=== PATIENT | male | born 1990 | race Caucasian/White ===

== ENCOUNTER 2016-09-04 16:20 | Emergency (ER) | payer SELFPAY ==
[2016-09-04 16:45] VITALS: BP 123/76
--- NOTE | 2016-09-04 16:55 | UC ---
Skin Complaint HPI - HPI Summary HPI Summary: RASH X 2 WEEKS ALL OVER, VERY ITCHY , NO NEW SOAP OR DETERGENT , NO NEW FOOD OR DRINKS - History of Current Complaint Chief Complaint: UCSkin Time Seen by Provider: 09/04/16 16:47 Stated Complaint: SKIN COMPLAINT Hx Obtained From: Patient Onset/Duration: Gradual Onset, Lasting Weeks - 2, Still Present Timing: Constant Onset Severity: Moderate Current Severity: Moderate Location: Diffuse Character: Swelling, Pruritus, Hives, Redness Aggravating: Nothing Alleviating: Unknown Associated Signs & Symptoms: Positive: Rash - Allergy/Home Medications Allergies/Adverse Reactions: Allergies Allergy/AdvReac Type Severity Reaction Status Date / Time No Known Allergies Allergy Verified 09/04/16 16:45 Home Medications: Home Medications Hydrocortisone (Topical) [Cortaid Maximum Strength] 1 % EX DAILY PRN 09/04/16 [ History Confirmed 09/04/16] Review of Systems Constitutional: Negative Skin: Rash Eyes: Negative ENT: Negative Respiratory: Negative All Other Systems Reviewed And Are Negative: Yes PMH/Surg Hx/FS Hx/Imm Hx Previously Healthy: Yes - Surgical History Surgical History: Yes Surgery Procedure, Year, and Place: INGUINAL HERNIA REPAIR - Family History Known Family History: Negative: Diabetes - Social History Alcohol Use: Rare Substance Use Type: None Smoking Status (MU): Never Smoked Tobacco Physical Exam Triage Information Reviewed: Yes Appearance: Well-Appearing, No Pain Distress, Well-Nourished Vital Signs: Initial Vital Signs Temp 98.8 F 09/04/16 16:40 Pulse 67 09/04/16 16:40 Resp 14 09/04/16 16:40 BP 123/76 09/04/16 16:40 Pulse Ox 100 09/04/16 16:40 Vital Signs Reviewed: Yes Eye Exam: Normal Eyes: Positive: Conjunctiva Clear ENT: Positive: Normal ENT inspection, Hearing grossly normal, Pharynx normal Neck exam: Normal Neck: Positive: Supple, Nontender, No Lymphadenopathy Respiratory: Positive: Chest non-tender, Lungs clear, Normal breath sounds Cardiovascular: Positive: RRR, No Murmur, Pulses Normal Skin: Positive: rashes - MACULAR GENERALIZED RASH Course/Dx - Diagnoses Provider Diagnoses: HIVES Discharge - Discharge Plan Condition: Stable Disposition: HOME Prescriptions: Prednisone 40 mg PO DAILY WITH MEAL #28 tab Patient Education Materials: Urticaria (ED) Referrals: Non Staff,Doctor [Primary Care Provider] - 7 Days
== END 2016-09-04 17:04 | disposition home or self-care (01) ==
LOC: UCCORT 16:20
DX: L50.9 Urticaria, unspecified (principal)
CPT/HCPCS: 99212; G0463

== ENCOUNTER 2018-04-11 13:40 | Emergency (ER) | payer OTHER ==
[2018-04-11 14:02] VITALS: BP 131/58
--- NOTE | 2018-04-11 14:21 | UC ---
Upper Extremity HPI - HPI Summary HPI Summary: 27-year-old male presents for right wrist pain. States has had intermittent right wrist pain since October of this year. States it's associated with use of a jackhammer for work. Current episode started today following use of a jackhammer. Describes pain as a constant ache that is intermittently sharp in nature especially with movement. Denies any weakness, numbness, or tingling. - History of Current Complaint Chief Complaint: UCUpperExtremity Stated Complaint: WC-RT WRIST INJURY Time Seen by Provider: 04/11/18 14:06 Hx Obtained From: Patient Pain Intensity: 8 - Allergies/Home Medications Allergies/Adverse Reactions: Allergies Allergy/AdvReac Type Severity Reaction Status Date / Time No Known Allergies Allergy Verified 09/04/16 16:45 PMH/Surg Hx/FS Hx/Imm Hx Previously Healthy: Yes - Denies significant PMH - Surgical History Surgical History: Yes Surgery Procedure, Year, and Place: INGUINAL HERNIA REPAIR - Family History Known Family History: Negative: Diabetes - Social History Alcohol Use: Rare Substance Use Type: None Smoking Status (MU): Never Smoked Tobacco Review of Systems All Other Systems Reviewed And Are Negative: Yes Constitutional: Negative: Fever, Chills Skin: Negative: Rash, Bruising Motor: Negative: Decreased ROM Neurovascular: Negative: Decreased Sensation Musculoskeletal: Positive: Arthralgia - See HPI. Negative: Edema Is Patient Immunocompromised?: No Physical Exam - Summary Physical Exam Summary: GENERAL APPEARANCE: Well developed, well nourished, alert and cooperative, and appears to be in no acute distress. CARDIAC: Normal S1 and S2. No S3, S4 or murmurs. Rhythm is regular. There is no peripheral edema, cyanosis or pallor. Extremities are warm and well perfused. Capillary refill is less than 2 seconds. LUNGS: Clear to auscultation and percussion without rales, rhonchi, wheezing or diminished breath sounds. ABDOMEN: Positive bowel sounds. Soft, nondistended, nontender. No guarding or rebound. No masses or hepatosplenomegally. MUSKULOSKELETAL: Normal muscular development. Normal gait. Mild tenderness over mid-dorsal right wrist. No gross deformity, ecchymosis, or erythema. EXTREMITIES: No edema. Peripheral pulses intact. NEUROLOGICAL: Strength and sensation symmetric and intact throughout. SKIN: Skin normal color, texture and turgor with no lesions or eruptions. Triage Information Reviewed: Yes Vital Signs: Initial Vital Signs Temp 97.4 F 04/11/18 13:59 Pulse 65 04/11/18 13:59 Resp 16 04/11/18 13:59 BP 131/58 04/11/18 13:59 Pulse Ox 99 04/11/18 13:59 Vital Signs Reviewed: Yes Diagnostics - Radiology No standard instances Radiology Interpretation Completed By: ED Physician - Negative for fracture, Radiologist Summary of Radiographic Findings: Patient Name: IESHA WHITFIELD Medical Record#: [id number]. Ordering Physician: Mayco Wang NP Acct.#: [id number]. : 1990 Age: 27 Sex: M Location: [facility] [place]. Exam Date: 1410 ADM Status: REG ER. Order Information: WRIST RIGHT 3+ VWS. Accession Number: [id number]. CPT: 63402. Indication: Right wrist injury and pain. 3 views of the wrist demonstrates no fracture. No other bone or joint abnormality is. identified. IMPRESSION: NO FRACTURE OF THE WRIST IS NOTED. Upper Extremity Course/Dx - Course Course Of Treatment: 27-year-old male presents for right wrist pain. States has had intermittent right wrist pain since October of this year. States it's associated with use of a jackhammer for work. Current episode started today following use of a jackhammer. Describes pain as a constant ache that is intermittently sharp in nature especially with movement. Denies any weakness, numbness, or tingling. Exam unremarkable except for some mild tenderness over mid-dorsal right wrist. X-ray negative for fracture. Recommending conservative treatment with NSAIDs, rest, ice, and work duty modifications. He is to follow up with occupational medicine in 7 days for re-evaluation. Warning symptoms were reviewed. Verbalizes understanding and agrees with POC. - Differential Dx/Diagnosis Provider Diagnosis: Right wrist pain Discharge - Sign-Out/Discharge Documenting (check all that apply): Patient Departure All imaging exams completed and their final reports reviewed: Yes - Discharge Plan Condition: Stable Disposition: HOME Prescriptions: Naproxen [Naproxen 500 mg tab] 500 mg PO BID #30 tablet Patient Education Materials: Wrist Injury (ED) Forms: *Work Release Referrals: No Primary Care Phys,NOPCP [Primary Care Provider] - Lizandro Costa MD [Medical Doctor] - 7 Days (Call for appointment.) Additional Instructions: Your X-ray performed in the clinic today was negative for fracture. I suspect that your pain is related to the repeated stress of using the jackhammer at work. Take naproxen 500 mg 1 tab every 12 hours with food for next 7 day. After 7 days you may take 1 tab every 12 hours as needed. Rest the wrist as much as possible. Avoid heavy lifting or strenuous activity. Apply ice to the affected area for 15-20 minutes at least 4 times a day. Follow up with Dr. Costa, occupational medicine, in 7 days for re-evaluation of symptoms. Call for appointment. Seek immediate medical attention in the emergency room if you have severe swelling of the wrist, pain that is not managed with pain medication, develop numbness, tingling, or weakness in the hand or fingers, the hand or finger turn pale or blue color, or you have any worsening of symptoms. - Billing Disposition and Condition Condition: STABLE Disposition: Home
== END 2018-04-11 14:42 | disposition home or self-care (01) ==
LOC: UCCORT 13:40
DX: M25.531 Pain in right wrist (principal)
CPT/HCPCS: 99212; G0463